=== PATIENT | female | born 1950 | race Caucasian/White ===

== ENCOUNTER → 2018-04-29 | Outpatient (REF) | payer BC | LOC: M LAB REF 14:22 | DX: R10.32 Left lower quadrant pain (principal) | CPT/HCPCS: 87086 ==

== ENCOUNTER → 2018-04-29 | Outpatient (CLI) | payer BC, MEDICARE ==
[~2018-04-29] MED LIST: GASTROGRAFIN SOLUTION 30ML (Q9963) As Ordered; ISOVUE-370 76% 100ML VIAL (Q9967) As Ordered
== END ==
LOC: M RAD 12:35
DX: R10.32 Left lower quadrant pain (principal)
CPT/HCPCS: Q9963